=== PATIENT | male | born 1940 | race Caucasian/White ===

== ENCOUNTER 2019-11-17 01:37 | Emergency (ER) | payer MEDICARE, BC ==
[2019-11-17] MEDS ORDERED: Sodium Chloride 0.9% 1,000 ML IV ONE (01:51)
[2019-11-17] MEDS ORDERED: Ondansetron 4 MG/2 ML SDV IVPUSH ONE (01:52)
--- NOTE | 2019-11-17 02:06 | EDM.PDOC ---
ED HPI GENERAL MEDICAL PROBLEM - General Chief Complaint: Flank Pain Stated Complaint: STOMACH ISSUES Time Seen by Provider: 11/17/19 01:50 Source of Information: Reports: Patient History Limitations: Reports: No Limitations - History of Present Illness INITIAL COMMENTS - FREE TEXT/NARRATIVE: This 78 yo male patient reports to the ED with right flank pain that started last night at about 1700. The patient reports he was able to get about 1 hour of sleep, but then started to have increased pain with nausea. The patient reports he vomited several times prior to coming to the ED and still feels nauseated. The patient reports he has not taken anything for his current symptoms. The patient reports he has a previous history of kidney stones (10 years ago). The patient reports he has had an appendectomy and stents placed in his heart, but no other surgical history. Onset Date: 11/16/19 Onset Time: 17:00 Duration: Getting Worse, Intermittent Location: Reports: Back (right flank) Quality: Reports: Ache, Sharp, Stabbing Severity: Severe Improves with: Reports: None Worsens with: Reports: None Context: Reports: Other Associated Symptoms: Reports: Nausea/Vomiting Right Flank Pain Score (Numeric/FACES): 8 - Related Data Allergies Allergy/AdvReac Type Severity Reaction Status Date / Time No Known Allergies Allergy Verified 11/17/19 01:43 Home Meds: Home Meds Aspirin [[place] Aspirin] 81 mg PO DAILY 08/14/13 [History] Metoprolol Tartrate 75 mg PO BID 08/14/13 [History] Omeprazole 40 mg PO DAILY 08/14/13 [History] Past Medical History HEENT History: Reports: Impaired Vision Cardiovascular History: Reports: Stents Social & Family History - Tobacco Use Smoking Status *Q: Never Smoker Second Hand Smoke Exposure: No - Recreational Drug Use Recreational Drug Use: No ED ROS GENERAL - Review of Systems Review Of Systems: Comprehensive ROS is negative, except as noted in HPI. ED EXAM, RENAL/ - Physical Exam Exam: See Below Exam Limited By: No Limitations General Appearance: Alert, WD/WN, Moderate Distress Eye Exam: Bilateral Eye: EOMI, Normal Inspection, PERRL Ears: Normal External Exam, Normal Canal, Hearing Grossly Normal, Normal TMs Nose: Normal Inspection, Normal Mucosa, No Blood Throat/Mouth: Normal Inspection, Normal Lips, Normal Teeth, Normal Gums, Normal Oropharynx, Normal Voice, No Airway Compromise Head: Atraumatic, Normocephalic Neck: Normal Inspection Respiratory/Chest: No Respiratory Distress, Lungs Clear, Normal Breath Sounds, No Accessory Muscle Use, Chest Non-Tender Cardiovascular: Normal Peripheral Pulses, Regular Rate, Rhythm, No Edema, No Gallop, No JVD, No Murmur, No Rub GI/Abdominal: Normal Bowel Sounds, Soft, No Organomegaly, No Distention, No Abnormal Bruit, No Mass, Pelvis Stable, Tender (right sided) (Male) Exam: Deferred Rectal (Males) Exam: Deferred Back Exam: CVA Tenderness (R) Extremities: Normal Inspection, Normal Range of Motion, Non-Tender, Normal Capillary Refill, No Pedal Edema Neurological: Alert, Oriented, CN II-XII Intact, Normal Cognition, Normal Gait, Normal Reflexes, No Motor/Sensory Deficits Psychiatric: Normal Affect, Normal Mood Skin Exam: Warm, Dry, Intact, Normal Color, No Rash Lymphatic: No Adenopathy Course - Vital Signs Last Recorded V/S: Last Vital Signs Temp 35.9 C L 11/17/19 01:40 Pulse 61 11/17/19 01:40 Resp 18 11/17/19 01:40 BP 190/122 H 11/17/19 01:40 Pulse Ox 100 11/17/19 01:40 - Orders/Labs/Meds Orders: Active Orders 24 hr Category Date Time Status Abdomen Pelvis wo Cont [CT] Urgent Exams 11/17/19 02:29 Ordered Labs: Laboratory Tests 11/17/19 11/17/19 11/17/19 Range/Units 01:48 01:48 02:07 WBC 11.8 H (5.0-10.0) 10^3/uL RBC 4.80 (4.6-6.2) 10^6/uL Hgb 14.6 (14.0-18.0) g/dL Hct 42.0 (40.0-54.0) % MCV 87.5 (80-100) fL MCH 30.4 (27.0-34.0) pg MCHC 34.8 (33.0-35.0) g/dL Plt Count 221 (150-450) 10^3/uL Neut % (Auto) 74.4 (42.2-75.2) % Lymph % (Auto) 18.6 L (20.5-50.1) % [place] % (Auto) 6.5 (2-8) % Eos % (Auto) 0.2 L (1.0-3.0) % Baso % (Auto) 0.3 (0.0-1.0) % Sodium 139 (136-145) mmol/L Potassium 3.6 (3.5-5.1) mmol/L Chloride 103 (98-107) mmol/L Carbon Dioxide 25 (21-32) mmol/L Anion Gap 14.6 H (7-13) mEq/L BUN 21 H (7-18) mg/dL Creatinine 1.86 H (0.70-1.30) mg/dL Est Cr Clr Drug Dosing 35.93 mL/min Estimated GFR (MDRD) 35 BUN/Creatinine Ratio 11.3 (No establ ref range) Glucose 150 H (74-99) mg/dL Calcium 9.1 (8.5-10.1) mg/dL Total Bilirubin 0.4 (0.2-1.0) mg/dL AST 17 (15-37) U/L ALT 27 (16-63) U/L Alkaline Phosphatase 109 (46-116) U/L Total Protein 7.6 (6.4-8.2) g/dL Albumin 4.3 (3.4-5.0) g/dL Globulin 3.3 Albumin/Globulin Ratio 1.3 Urine Color Alicia (YELLOW) Urine Appearance Slightly cloudy (CLEAR) Urine pH 5.5 (5.0-9.0) Ur Specific [place] >= 1.030 (1.005-1.030) Urine Protein 100 H (NEGATIVE) Urine Glucose (UA) Negative (NEGATIVE) Urine Ketones Negative (NEGATIVE) Urine Occult Blood Large H (NEGATIVE) Urine Nitrite Negative (NEGATIVE) Urine Bilirubin Negative (NEGATIVE) Urine Urobilinogen 0.2 (0.2-1.0) mg/dL Ur Leukocyte Esterase Negative (NEGATIVE) Urine RBC >100 H /HPF Urine WBC Not seen (0-5/HPF) /HPF Ur Epithelial Cells Rare (NOT SEEN) /HPF Amorphous Sediment Few (NOT SEEN) /HPF Urine Bacteria Few (0-FEW/HPF) /HPF Urine Mucus Few H (NOT SEEN) /LPF Meds: Medications Discontinued Medications Generic Name Dose Route Start Last Admin Trade Name Freq PRN Reason Stop Dose Admin Sodium Chloride 1,000 mls @ 500 mls/hr 11/17/19 01:51 11/17/19 04:11 Normal Saline IV 11/17/19 03:50 Infused .BOLUS ONE Infusion Ketorolac Tromethamine 30 mg 11/17/19 03:38 11/17/19 03:41 Toradol IVPUSH 11/17/19 03:39 30 mg ONETIME ONE Administration Metoclopramide HCl 10 mg 11/17/19 03:07 11/17/19 03:11 Reglan IVPUSH 11/17/19 03:08 10 mg ONETIME ONE Administration Morphine Sulfate 2 mg 11/17/19 03:16 11/17/19 03:20 Morphine IVPUSH 11/17/19 03:17 2 mg ONETIME ONE Administration Ondansetron HCl 4 mg 11/17/19 01:52 11/17/19 01:58 Zofran IVPUSH 11/17/19 01:53 4 mg ONETIME ONE Administration Tamsulosin HCl 0.4 mg 11/17/19 04:01 11/17/19 04:09 Flomax PO 11/17/19 04:02 0.4 mg ONETIME ONE Administration Departure - Departure Time of Disposition: 04:13 Disposition: Home, Self-Care 01 Condition: Fair Clinical Impression: Kidney stone on right side - Discharge Information *PRESCRIPTION DRUG MONITORING PROGRAM REVIEWED*: Not Applicable *COPY OF PRESCRIPTION DRUG MONITORING REPORT IN PATIENT TERRI: Not Applicable Instructions: Kidney Stones, [id number] Forms: ED Department Discharge Care Plan Goals: The patient was advised of the examination, lab and CT results during the visit. The patient was given IV fluids, IV Morphine, IV Toradol and an oral dose of Flomax while in the ED. The patient was discharged with a script for Toradol (10 mg) #20 to take 1 by mouth every 6 hours with food and Flomax (0.4 mg) #5 to take 1 by mouth daily for 5 days. The patient should follow-up with his primary care facility in about 1 week. If the patient has any additional symptoms or concerns, the patient should either return to the emergency department or visit his primary care facility. Sepsis Event Note - Evaluation Sepsis Screening Result: No Definite Risk - Focused Exam Vital Signs: Vital Signs Temp Pulse Resp BP Pulse Ox 11/17/19 01:40 35.9 C L 61 18 190/122 H 100 Date Exam was Performed: 11/17/19 Time Exam was Performed: 04:13 - My Orders Last 24 Hours: My Active Orders 11/17/19 02:29 Abdomen Pelvis wo Cont [CT] Urgent - Assessment/Plan Last 24 Hours: My Active Orders 11/17/19 02:29 Abdomen Pelvis wo Cont [CT] Urgent
[2019-11-17 02:11] LABS: ANION GAP 14.6 mEq/L (7-13)
[2019-11-17] MEDS ORDERED: Metoclopramide 10 MG/2 ML SDV IVPUSH ONE (03:07)
[2019-11-17] MEDS ORDERED: Morphine 2 MG/ML SYRINGE IVPUSH ONE (03:16)
[2019-11-17] MEDS ORDERED: Ketorolac 30 MG/ML SDV IVPUSH ONE (03:38)
[2019-11-17] MEDS ORDERED: Tamsulosin 0.4 MG Cap.ER PO ONE (04:01)
== END 2019-11-17 04:25 | disposition home or self-care (01) ==
LOC: DL.ED 01:37
DX: N13.2 Hydronephrosis with renal and ureteral calculous obstruction (principal); Z79.82 Long term (current) use of aspirin; Z79.899 Other long term (current) drug therapy
CPT/HCPCS: 36415; 74176; 80053; 81001; 85025; 96361; 96374; 96375; 99284; A9270; J1885; J2270; J2405; J2765; J7030

== ENCOUNTER 2021-10-25 16:31 | Emergency (ER) | payer MEDICARE, BC ==
[2021-10-25] MEDS ORDERED: Sodium Chloride 0.9% 10 ML Syringe FLUSH PRN (16:35)
[2021-10-25] MEDS ORDERED: Aspirin 81 MG Tab.Chew PO ONE (16:47)
[2021-10-25] MEDS ORDERED: Aspirin 81 MG Tab.Chew ONE (16:49)
[2021-10-25] MEDS ORDERED: Heparin Sodium 5,000 Units/ML Vial ONE (16:51)
[2021-10-25] MEDS ORDERED: Morphine 2 MG/ML SYRINGE IVPUSH ONE ×2 (16:54→17:16)
[2021-10-25] MEDS ORDERED: Heparin Sodium 5,000 Units/ML Vial IVPUSH ONE (16:54)
[2021-10-25] MEDS ORDERED: Ondansetron 4 MG/2 ML SDV IVPUSH ONE (16:56)
[2021-10-25] MEDS ORDERED: Heparin Sodium/0.45% NaCl 25,000 UNITS/500 ML BAG IV SCH (17:00)
[2021-10-25] MEDS ORDERED: atorvaSTATin 20 MG Tab PO ONE (17:04)
[2021-10-25] MEDS ORDERED: Clopidogrel 75 MG Tab PO ONE (17:04)
[2021-10-25 17:20] LABS: ANION GAP 19.4 mEq/L (7-13); CHLORIDE,CL 106 mmol/L (98-107); SODIUM,NA 143 mmol/L (136-145)
[2021-10-25] MEDS ORDERED: Nitroglycerin/D5W 25 MG/250 ML BOTTLE IV SCH (17:30)
== END 2021-10-25 17:40 ==
LOC: DL.ED 16:31
DX: I21.11 ST elevation (STEMI) myocardial infarction involving right coronary artery (principal); Z79.82 Long term (current) use of aspirin; Z79.899 Other long term (current) drug therapy
CPT/HCPCS: 36415; 71045; 80053; 83690; 83735; 84443; 84484; 85025; 85379; 86140; 93010; 96365; 96375; 99285; 99285-25; A9270-GY; J1644; J2270; J2405; J3490